=== PATIENT | female | born 1950 | race Caucasian/White ===

== ENCOUNTER 2020-04-28 09:30 | Outpatient (CLI) | payer MEDICARE, SELFPAY ==
--- NOTE | 2020-04-28 09:52 | MM_ITS ---
WS: [id number] BILATERAL DIGITAL SCREENING MAMMOGRAPHY WITH CAD CLINICAL INFORMATION: SCREENING HISTORY: Screening mammogram. No current complaints. COMPARISON: TECHNIQUE: Bilateral CC and MLO views. FINDINGS: The breasts are composed of heterogeneous fibroglandular density tissue, which can limit the detectio n of small underlying mass lesions. No suspicious mass, asymmetry, calcifications, or architectural d istortion. No evidence of malignancy. Vascular calcification. Lucent centered calcifications. MM/[id number] IMPRESSION: BI-RADS: 2-Benign FOLLOW UP: 1 Year Follow-up Recommend return to annual screening mammography.
== END 2020-04-28 09:31 | disposition home or self-care (01) ==
LOC: RADSHAW 09:30
PROVIDERS: PCP Physician Assistant Medical; Visit Provider Physician Assistant Medical
DX: Z12.31 Encounter for screening mammogram for malignant neoplasm of breast (principal)
CPT/HCPCS: 77067

== ENCOUNTER 2021-04-30 14:56 | Outpatient (CLI) | payer MEDICARE, SELFPAY ==
--- NOTE | 2021-04-30 15:06 | MM_ITS ---
WS: [id number] BILATERAL DIGITAL SCREENING MAMMOGRAPHY WITH CAD CLINICAL INFORMATION: SCREENING HISTORY: Screening mammogram. No current complaints. COMPARISON: April 28, 2020 TECHNIQUE: Bilateral CC and MLO views. FINDINGS: The breasts are composed of heterogeneous fibroglandular density tissue, which can limit the detectio n of small underlying mass lesions. No suspicious mass, asymmetry, calcifications, or architectural d istortion. No evidence of malignancy. Punctate and lucent centered calcifications. Vascular calcifica tions. MM/[id number] IMPRESSION: BI-RADS: 2-Benign FOLLOW UP: 1 Year Follow-up Recommend return to annual screening mammography.
== END 2021-04-30 14:57 | disposition home or self-care (01) ==
LOC: RADSHAW 15:03
PROVIDERS: PCP Physician Assistant Medical; Visit Provider Physician Assistant Medical
DX: Z12.31 Encounter for screening mammogram for malignant neoplasm of breast (principal)
CPT/HCPCS: 77067

== ENCOUNTER 2022-05-01 09:52 | Outpatient (CLI) | payer MEDICARE, SELFPAY ==
--- NOTE | 2022-05-01 10:00 | MM_ITS ---
WS: [id number] Exam: [id number] Date/Time of Exam: 05/01/2022 10:06 AM Reason For Exam: SCREENING VIEWS: MLO and CC views both breasts. 3D digital tomosynthesis is also included in this exam. Comparison made with prior exam of 04/09/2016, 04/14/2017, 04/22/2018, 04/28/2020 and 04/30/2021. Findings: There was no sign of mass, architectural distortion or suspicious calcification in either breast. He terogeneously dense MM/[place] [id number] Impression: BI-RADS: 2-Benign FOLLOW-UP: 1 Year Follow-up This mammogram was also analyzed by the Computer Aided Detection System R2 Imag e [employer].
== END 2022-05-01 09:53 | disposition home or self-care (01) ==
LOC: RAD 09:53
PROVIDERS: PCP Registered Nurse; Visit Provider Registered Nurse
DX: Z12.31 Encounter for screening mammogram for malignant neoplasm of breast (principal)
CPT/HCPCS: 77063; 77067

== ENCOUNTER → 2022-08-21 15:45 | Outpatient (BNVA) | payer MEDICARE, SELFPAY | PROVIDERS: PCP Registered Nurse; Visit Provider Obstetrics & Gynecology | DX: R35.0 Frequency of micturition (principal) | CPT/HCPCS: 81000 ==

== ENCOUNTER 2023-05-06 08:59 | Outpatient (CLI) | payer MEDICARE, SELFPAY ==
--- NOTE | 2023-05-06 09:22 | MM_ITS ---
WS: [id number] BILATERAL 3D TOMOSYNTHESIS DIGITAL SCREENING MAMMOGRAPHY WITH CAD CLINICAL INFORMATION: SCREENING HISTORY: Screening mammogram. No current complaints. COMPARISON: 2021 TECHNIQUE: Bilateral CC and MLO views. FINDINGS: The breasts are composed of heterogeneous fibroglandular density tissue, which can limit the detectio n of small underlying mass lesions. No suspicious mass, asymmetry, calcifications, or architectural d istortion. No evidence of malignancy. Incidental lucent centered calcifications. Vascular calcificati ons. Punctate calcifications. MM/[id number] IMPRESSION: BI-RADS: 2-Benign FOLLOW UP: 1 Year Follow-up Recommend return to annual screening mammography.
== END 2023-05-06 09:00 | disposition home or self-care (01) ==
PROVIDERS: PCP Nurse Practitioner Family; Visit Provider Nurse Practitioner Family
DX: Z12.31 Encounter for screening mammogram for malignant neoplasm of breast (principal)
CPT/HCPCS: 77063; 77067

== ENCOUNTER → 2023-07-28 10:32 | Outpatient (BNVA) | payer MEDICARE, SELFPAY | PROVIDERS: PCP Nurse Practitioner Family; Visit Provider Podiatrist Foot & Ankle Surgery | DX: L60.3 Nail dystrophy (principal) | CPT/HCPCS: 99203 ==

== ENCOUNTER 2024-05-11 10:10 | Outpatient (CLI) | payer MEDICARE, SELFPAY ==
--- NOTE | 2024-05-11 10:20 | MM_ITS ---
WS: [id number] BILATERAL 3D TOMOSYNTHESIS DIGITAL SCREENING MAMMOGRAPHY WITH CAD CLINICAL INFORMATION: SCREENING HISTORY: Screening mammogram. No current complaints. Inverted RIGHT nipple COMPARISON: 2022 TECHNIQUE: Bilateral CC and MLO views. FINDINGS: The breasts are composed of heterogeneous fibroglandular density tissue, which can limit the detectio n of small underlying mass lesions. No suspicious mass, asymmetry, calcifications, or architectural d istortion. No evidence of malignancy. Vascular calcification. Punctate and lucent centered calcificat ions. Dystrophic calcifications. RIGHT subareolar nodularity and ectasia similar to prior studies. MM/[id number] IMPRESSION: BI-RADS: 2-Benign FOLLOW UP: 1 Year Follow-up Recommend return to annual screening mammography.
== END 2024-05-11 10:11 | disposition home or self-care (01) ==
LOC: MOBLMAM 10:20
PROVIDERS: PCP Nurse Practitioner Family; Visit Provider Nurse Practitioner Family
DX: Z12.31 Encounter for screening mammogram for malignant neoplasm of breast (principal); R92.333 Mammographic heterogeneous density, bilateral breasts; R92.1 Mammographic calcification found on diagnostic imaging of breast; N60.41 Mammary duct ectasia of right breast
CPT/HCPCS: 77063; 77067

== ENCOUNTER 2025-06-28 08:56 | Outpatient (CLI) | payer MEDICARE, SELFPAY ==
--- NOTE | 2025-06-28 09:00 | MM_ITS ---
WS: [id number] BILATERAL 3D TOMOSYNTHESIS DIGITAL SCREENING MAMMOGRAM WITH CAD CLINICAL INFORMATION: SCREENING HISTORY: Screening mammogram. No current complaints. COMPARISON: 2023 TECHNIQUE: Bilateral CC and MLO. FINDINGS: The breast are composed of extremely dense tissue, which can limit the detection of small underlying mass lesions. No suspicious focal mass, asymmetry, calcifications, or architectural distortion. No evidence of malignancy. Dystrophic calcifications. Lucent centered calcifications. Vascular calcificati ons. MM/MM [facility] tomosynthesis [id number] IMPRESSION: DENSITY: The breasts are heterogeneously dense, which may obscure small masses. BI-RADS: 2 - Benign FOLLOW UP: 1 Year Follow-up Recommend return to annual screening mammography.
== END 2025-06-28 08:57 | disposition home or self-care (01) ==
PROVIDERS: PCP Nurse Practitioner Family; Visit Provider Nurse Practitioner Family
DX: Z12.31 Encounter for screening mammogram for malignant neoplasm of breast (principal); R92.343 Mammographic extreme density, bilateral breasts; R92.333 Mammographic heterogeneous density, bilateral breasts; R92.1 Mammographic calcification found on diagnostic imaging of breast
CPT/HCPCS: 77063; 77067